=== PATIENT | female | born 1965 | race Caucasian/White ===

== ENCOUNTER 2024-04-18 05:01 | Inpatient (IN) | payer MEDICAID ==
[~2024-04-18] VITALS: Ht 160 cm; Wt 54.5 kg
[2024-04-18] MEDS: HYDROmorphone 1 mg/ml syringe IV ONE (06:13)
[2024-04-18] MEDS: ondansetron/PF 4mg/2ml inj IV ONE (06:15)
[2024-04-18 06:57] LABS: BASOPHILS % (AUTO) 0.3 % (0-1); EOSINOPHILS % (AUTO) 0.4 % (0-6); HEMATOCRIT 36.2 % (35.0-45.0); HEMOGLOBIN 12.7 g/dl (12.0-16.0); LYMPHOCYTES # (AUTO) 1.5 X10'3 (1.1-4.8); LYMPHOCYTES % (AUTO) 11.6 % (21-51); MEAN CORPUSCULAR HEMOGLOBIN 33.2 PG (27.0-31.0); MEAN CORPUSCULAR VOLUME 94.9 FL (78-98); MONOCYTES # (AUTO) 1.2 X10'3 (0-0.9); MONOCYTES % (AUTO) 9.2 % (2-12); NEUTROPHILS # (AUTO) 10.3 X10'3 (1.8-7.7); NEUTROPHILS % (AUTO) 78.5 % (42-75); PLATELET COUNT 540 X10'3 (140-440); RED BLOOD COUNT 3.81 X10'6 (4.20-5.60); RED CELL DISTRIBUTION WIDTH 12.4 % (11.5-14.5); WHITE BLOOD COUNT 13.1 X10'3 (4.5-11.0)
[2024-04-18 06:59] LABS: APTT 31 SECONDS (22-32); PROTHROMBIN TIME 10.4 SECONDS (9.0-12.0)
[2024-04-18 07:10] LABS: ALANINE AMINOTRANSFERASE 83 U/L (12-78); ALBUMIN 3.1 G/DL (3.4-5.0); ALBUMIN/GLOBULIN RATIO 0.8 (1.1-1.5); ALKALINE PHOSPHATASE 335 IU/L (46-116); ANION GAP 9 (8-16); ASPARTATE AMINO TRANSFERASE 18 U/L (10-37); BILIRUBIN,TOTAL 0.5 MG/DL (0.1-1.0); BLOOD UREA NITROGEN 36 MG/DL (7-18); BUN/CREATININE RATIO 22.4 (10.0-20.0); CALCIUM 8.6 MG/DL (8.5-10.1); CHLORIDE 86 MMOL/L (99-107); CREATININE 1.61 MG/DL (0.40-0.90); LIPASE 12 U/L (16-77); MAGNESIUM 1.9 MG/DL (1.5-2.4); POTASSIUM 4.3 MMOL/L (3.5-5.1); SODIUM 124 MMOL/L (135-145); TOTAL CARBON DIOXIDE 29.3 MMOL/L (24-32); TOTAL PROTEIN 7.1 G/DL (6.4-8.2); eCRCL 32 ML/MIN; eGFR 33 ML/MIN
[2024-04-18 07:12] LABS: GLUCOSE 609 MG/DL (70-104)
[2024-04-18] MEDS ORDERED: iohexol 300mg/ml 100ml inj. ONE (07:25)
[2024-04-18] MEDS ORDERED: NO HOME MEDS (08:35)
[2024-04-18 09:52] LABS: BILIRUBIN,URINE NEGATIVE (Neg); CLARITY,URINE CLEAR (Clear); COLOR,URINE STRAW (Yellow); GLUCOSE, URINE >=1000 mg/dl (Neg); KETONES,URINE NEGATIVE (Neg); LEUKOCYTE ESTERASE ,URINE NEGATIVE (Neg); NITRITES, URINE NEGATIVE (Neg); OCCULT BLOOD,URINE SMALL (Neg); PROTEIN,URINE NEGATIVE (Neg); UROBILINOGEN,URINE 0.2 E.U/dL (0.2-1.0)
[2024-04-18 09:54] LABS: UA COLLECTION TYPE STRAIGHT CATH
[2024-04-18 09:57] LABS: BACTERIA,URINE FEW /HPF (Neg); MUCUS STRANDS NONE SEEN /LPF (Neg); RBC,URINE 0-2 /HPF (0-2); SQUAMOUS EPITHELIAL CELL,UR NONE SEEN /LPF (FEW)
[2024-04-18 09:58] LABS: WBC CLUMPS,URINE FEW /HPF (NEGATIVE)
[2024-04-18 10:16] LABS: ABG BASE EXCESS 3.1 mmol/L (-2.0-3.0); ABG HCO3 27.1 mmol/L (21.0-28.0); ABG PCO2 (T) 39.1 mmHg (32.0-45.0); ABG PH (T) 7.458 (7.350-7.450); ABG PO2 (T) 88.1 mmHg (83.0-108.0); ALLEN'S TEST POSITIVE; FMetHb 0.3 % (0.0-1.5); FO2Hb 95.7 % (94.0-98.0); MODE ROOM AIR; PATIENT TEMPERATURE 36.8; TOTAL HEMOGLOBIN 13.3 G/dl (12.0-16.0)
[2024-04-18 10:22] LABS: URINE AMPHETAMINE SCREEN POSITIVE (Neg); URINE BARBITUATE SCREEN NEGATIVE (Neg); URINE BENZODIAZEPINES SCREEN NEGATIVE (Neg); URINE CANNABINOID SCREEN NEGATIVE (Neg); URINE COCAINE SCREEN NEGATIVE (Neg); URINE METHADONE SCREEN NEGATIVE (Neg); URINE OPIATE SCREEN NEGATIVE (Neg); URINE PHENCYCLIDINE SCREEN NEGATIVE (Neg)
[2024-04-18] MEDS: normal saline 1000ml 1,000 ML IV ONE (10:22)
[2024-04-18] MEDS ORDERED: magnesium sulf-water 2g/50mL 50 ML IV PRN (12:30)
[2024-04-18] MEDS ORDERED: HYDROcodone/acetaminophen 5mg/325mg tablet PO PRN (12:30)
[2024-04-18] MEDS ORDERED: dextrose 50%-water 50ml dispensing syringe IV PRN (12:30)
[2024-04-18] MEDS ORDERED: glucagon, human recombinant 1mg kit SUBCUT PRN (12:30)
[2024-04-18] MEDS ORDERED: magnesium sulf-water 4G/100mL 100 ML IV PRN (12:30)
[2024-04-18] MEDS ORDERED: potassium Cl 20 mEq SR tablet PO PRN ×2 (12:30)
[2024-04-18] MEDS ORDERED: DEXTROSE 15 GM of carb/4 tabs (each vial/BOTTLE has 4 tablets) PO PRN ×2 (12:30)
[2024-04-18] MEDS ORDERED: potassium Cl 40MEQ/1/2NS 520ml 520 ML IV PRN (12:30)
[2024-04-18] MEDS ORDERED: acetaminophen 325mg tablet PO PRN ×2 (12:30)
[2024-04-18] MEDS: CefTRIAXone/D5W-Rocephin 1gm 50 ML IV ONE (12:44)
[2024-04-18] MEDS: INSULIN LISPRO 100 UNIT/ML INSULN.PEN MULTI-DOSE SQ STA (12:55)
[2024-04-18 13:22] LABS: HEMOGLOBIN A1C > 12.0 % (4.5-6.2)
[2024-04-18] MEDS: normal saline 1000ml 1,000 ML IV SCH (14:12)
[2024-04-18] MEDS: INSULIN LISPRO 100 UNIT/ML INSULN.PEN MULTI-DOSE SQ SCH ×2 (14:14→17:00)
[2024-04-18 14:38] LABS: ANION GAP 7 (8-16); BLOOD UREA NITROGEN 31 MG/DL (7-18); BUN/CREATININE RATIO 22.8 (10.0-20.0); CALCIUM 9.1 MG/DL (8.5-10.1); CHLORIDE 95 MMOL/L (99-107); CREATININE 1.36 MG/DL (0.40-0.90); SODIUM 134 MMOL/L (135-145); eCRCL 38 ML/MIN; eGFR 40 ML/MIN
[2024-04-18] MEDS: ondansetron/PF 4mg/2ml inj IV PRN (14:44)
[2024-04-18] MEDS: HYDROmorphone 1 mg/ml syringe IV PRN (14:44)
[2024-04-18 14:47] LABS: GLUCOSE 448 MG/DL (70-104)
[2024-04-18] MEDS: VANCOMYCIN/WATER FOR INJ (PEG) 750MG/150 ML IVPB IV SCH (15:02)
[2024-04-18] MEDS: heparin, porcine 5000 units/ml vial SQ SCH (17:17)
[2024-04-18] MEDS: K and/or MAG REPLACEMENT MC SCH (19:49)
[2024-04-18 21:20] VITALS: RESP 17; O2SAT 98
[2024-04-18] MEDS: docusate sod 100mg capsule PO SCH (21:53)
[2024-04-18] MEDS: insulin glargine (Lantus) pen - multi-dose SQ SCH (22:49)
[2024-04-19] MEDS: lactulose 20gm/30ml cup PO SCH (02:29)
[2024-04-19 06:58] LABS: BASOPHILS % (AUTO) 0.1 % (0-1); EOSINOPHILS % (AUTO) 0.1 % (0-6); HEMATOCRIT 36.4 % (35.0-45.0); HEMOGLOBIN 12.6 g/dl (12.0-16.0); LYMPHOCYTES # (AUTO) 1.3 X10'3 (1.1-4.8); LYMPHOCYTES % (AUTO) 7.8 % (21-51); MEAN CORPUSCULAR HEMOGLOBIN 32.7 PG (27.0-31.0); MEAN CORPUSCULAR HGB CONC 34.6 g/dL (33.0-36.5); MEAN CORPUSCULAR VOLUME 94.7 FL (78-98); MEAN PLATELET VOLUME 8.5 FL (7.4-10.4); MONOCYTES # (AUTO) 1.6 X10'3 (0-0.9); MONOCYTES % (AUTO) 9.7 % (2-12); NEUTROPHILS # (AUTO) 13.5 X10'3 (1.8-7.7); NEUTROPHILS % (AUTO) 82.3 % (42-75); PLATELET COUNT 596 X10'3 (140-440); RED BLOOD COUNT 3.84 X10'6 (4.20-5.60); RED CELL DISTRIBUTION WIDTH 12.7 % (11.5-14.5); WHITE BLOOD COUNT 16.4 X10'3 (4.5-11.0)
[2024-04-19 07:36] VITALS: BP 118/60; PULSE 84; RESP 16; TEMP 97.8; O2SAT 99
[2024-04-19 07:50] LABS: ALANINE AMINOTRANSFERASE 65 U/L (12-78); ALBUMIN 2.7 G/DL (3.4-5.0); ALBUMIN/GLOBULIN RATIO 0.7 (1.1-1.5); ALKALINE PHOSPHATASE 272 IU/L (46-116); ANION GAP 10 (8-16); ASPARTATE AMINO TRANSFERASE 23 U/L (10-37); BILIRUBIN,TOTAL 0.2 MG/DL (0.1-1.0); BLOOD UREA NITROGEN 38 MG/DL (7-18); BUN/CREATININE RATIO 31.1 (10.0-20.0); CALCIUM 8.6 MG/DL (8.5-10.1); CHLORIDE 98 MMOL/L (99-107); CREATININE 1.22 MG/DL (0.40-0.90); GLUCOSE 185 MG/DL (70-104); MAGNESIUM 2.1 MG/DL (1.5-2.4); POTASSIUM 4.5 MMOL/L (3.5-5.1); SODIUM 133 MMOL/L (135-145); TOTAL PROTEIN 6.6 G/DL (6.4-8.2); eCRCL 43 ML/MIN; eGFR 46 ML/MIN
[2024-04-19] MEDS: CefTRIAXone/D5W-Rocephin 1gm 50 ML IV SCH (07:55)
[2024-04-19] MEDS: nicotine 21mg patch - 24 hr TD SCH (07:55)
[2024-04-19] MEDS: magnesium hydroxide 30ml (MOM) UD suspension PO PRN (07:56)
[2024-04-19 08:10] VITALS: RESP 16; O2SAT 99
[2024-04-19] MEDS: fluconazole-Diflucan 200mg/NS 100 ML IV SCH (09:20)
[2024-04-19 10:00] VITALS: BP 151/96; PULSE 95; RESP 15; TEMP 98.6; O2SAT 94
[2024-04-19] MEDS: HYDROcodone/acetaminophen 10/325mg tab PO PRN (16:22)
[2024-04-19 18:00] VITALS: BP 173/106; PULSE 97; RESP 15; TEMP 97.9; O2SAT 98
[2024-04-19 20:00] VITALS: RESP 15; O2SAT 98
[2024-04-19 22:00] VITALS: BP 164/105; PULSE 82; RESP 13; TEMP 98.1; O2SAT 97
[2024-04-19] MEDS: mag hydrox/Alum hydrox/simeth 30ml oral suspension PO PRN (23:13)
[2024-04-19] MEDS: mineral oil 133ml enema RC PRN (23:13)
[2024-04-20] VITALS (7 sets, daily range): BP systolic 142–178; BP diastolic 93–118; PULSE 84–107; RESP 16–20; TEMP 97.1–97.4; O2SAT 96–100
[2024-04-20] MEDS: hydrALAZINE 20mg/ml inj. IV PRN (03:22)
[2024-04-20 04:44] LABS: LYMPHOCYTES # (AUTO) 1.4 X10'3 (1.1-4.8)
[2024-04-20 04:47] LABS: BASOPHILS % (AUTO) 0.2 % (0-1); EOSINOPHILS % (AUTO) 0.3 % (0-6); HEMATOCRIT 41.1 % (35.0-45.0); LYMPHOCYTES % (AUTO) 9.5 % (21-51); MEAN CORPUSCULAR HEMOGLOBIN 32.5 PG (27.0-31.0); MEAN CORPUSCULAR VOLUME 95.6 FL (78-98); MEAN PLATELET VOLUME 8.8 FL (7.4-10.4); MONOCYTES # (AUTO) 1.6 X10'3 (0-0.9); MONOCYTES % (AUTO) 11.1 % (2-12); NEUTROPHILS # (AUTO) 11.6 X10'3 (1.8-7.7); NEUTROPHILS % (AUTO) 78.9 % (42-75); PLATELET COUNT 653 X10'3 (140-440); RED CELL DISTRIBUTION WIDTH 12.7 % (11.5-14.5); WHITE BLOOD COUNT 14.8 X10'3 (4.5-11.0)
[2024-04-20 05:07] LABS: ALANINE AMINOTRANSFERASE 52 U/L (12-78); ALBUMIN 2.7 G/DL (3.4-5.0); ALBUMIN/GLOBULIN RATIO 0.6 (1.1-1.5); ALKALINE PHOSPHATASE 272 IU/L (46-116); ANION GAP 12 (8-16); ASPARTATE AMINO TRANSFERASE 19 U/L (10-37); BILIRUBIN,TOTAL 0.3 MG/DL (0.1-1.0); BLOOD UREA NITROGEN 47 MG/DL (7-18); BUN/CREATININE RATIO 27.6 (10.0-20.0); CHLORIDE 98 MMOL/L (99-107); GLUCOSE 230 MG/DL (70-104); MAGNESIUM 2.4 MG/DL (1.5-2.4); POTASSIUM 4.3 MMOL/L (3.5-5.1); SODIUM 134 MMOL/L (135-145); TOTAL CARBON DIOXIDE 24.2 MMOL/L (24-32); TOTAL PROTEIN 7.1 G/DL (6.4-8.2); eCRCL 31 ML/MIN; eGFR 31 ML/MIN
[2024-04-20 05:11] LABS: GIANT PLATELET FEW; PLATELET ESTIMATE INCREASED
[2024-04-20 05:43] LABS: CALCIUM 8.8 MG/DL (8.5-10.1)
[2024-04-20] MEDS: HYDROmorphone inj. 0.5 MG/0.5 ML DISP.SYRIN IV PRN (13:18)
[2024-04-20] MEDS: magnesium citrate 296ml oral solution PO ONE (14:11)
[2024-04-20] MEDS: insulin glargine (Lantus) pen - multi-dose SQ SCH (20:27)
[2024-04-21] VITALS (7 sets, daily range): BP systolic 135–163; BP diastolic 91–112; PULSE 74–122; RESP 12–19; TEMP 97.2–98.1; O2SAT 92–97
[2024-04-21] MEDS: bisacodyl 10mg suppository rectal RC PRN ×2 (03:55→18:43)
[2024-04-21 05:57] LABS: HEMOGLOBIN 13.1 g/dl (12.0-16.0); LYMPHOCYTES # (AUTO) 1.4 X10'3 (1.1-4.8); MEAN CORPUSCULAR HEMOGLOBIN 33.1 PG (27.0-31.0); MONOCYTES # (AUTO) 1.7 X10'3 (0-0.9); NEUTROPHILS # (AUTO) 10.2 X10'3 (1.8-7.7); RED BLOOD COUNT 3.95 X10'6 (4.20-5.60); WHITE BLOOD COUNT 13.5 X10'3 (4.5-11.0)
[2024-04-21 05:59] LABS: BASOPHILS % (AUTO) 0.3 % (0-1); EOSINOPHILS % (AUTO) 0.2 % (0-6); HEMATOCRIT 37.8 % (35.0-45.0); LYMPHOCYTES % (AUTO) 10.4 % (21-51); MEAN CORPUSCULAR HGB CONC 34.5 g/dL (33.0-36.5); MEAN CORPUSCULAR VOLUME 95.8 FL (78-98); MEAN PLATELET VOLUME 8.4 FL (7.4-10.4); MONOCYTES % (AUTO) 12.9 % (2-12); NEUTROPHILS % (AUTO) 76.2 % (42-75); PLATELET COUNT 654 X10'3 (140-440); RED CELL DISTRIBUTION WIDTH 12.6 % (11.5-14.5)
[2024-04-21 06:15] LABS: ALANINE AMINOTRANSFERASE 51 U/L (12-78); ALBUMIN 2.5 G/DL (3.4-5.0); ALBUMIN/GLOBULIN RATIO 0.6 (1.1-1.5); ALKALINE PHOSPHATASE 251 IU/L (46-116); ANION GAP 17 (8-16); ASPARTATE AMINO TRANSFERASE 22 U/L (10-37); BILIRUBIN,TOTAL 0.3 MG/DL (0.1-1.0); BLOOD UREA NITROGEN 56 MG/DL (7-18); BUN/CREATININE RATIO 26.7 (10.0-20.0); CALCIUM 9.1 MG/DL (8.5-10.1); CHLORIDE 92 MMOL/L (99-107); GLUCOSE 391 MG/DL (70-104); MAGNESIUM 3.1 MG/DL (1.5-2.4); POTASSIUM 4.9 MMOL/L (3.5-5.1); SODIUM 131 MMOL/L (135-145); TOTAL CARBON DIOXIDE 22.4 MMOL/L (24-32); TOTAL PROTEIN 6.9 G/DL (6.4-8.2); eCRCL 25 ML/MIN; eGFR 24 ML/MIN
[2024-04-21] MEDS: INSULIN LISPRO 100 UNIT/ML INSULN.PEN MULTI-DOSE SQ SCH ×2 (08:16→09:00)
[2024-04-21] MEDS: sennosides/docusate sodium tablet PO SCH (13:18)
[2024-04-21] MEDS: VANCOMYCIN LEVEL IV ONE (13:30)
[2024-04-21] MEDS: insulin glargine (Lantus) pen - multi-dose SQ SCH (21:47)
[2024-04-22 06:31] VITALS: BP 139/85; PULSE 99; RESP 15; TEMP 97.9; O2SAT 93
[2024-04-22 08:00] VITALS: RESP 15; O2SAT 93
[2024-04-22 08:48] LABS: ALANINE AMINOTRANSFERASE 47 U/L (12-78); ALBUMIN/GLOBULIN RATIO 0.6 (1.1-1.5); ALKALINE PHOSPHATASE 195 IU/L (46-116); ANION GAP 7 (8-16); ASPARTATE AMINO TRANSFERASE 43 U/L (10-37); BILIRUBIN,TOTAL 0.2 MG/DL (0.1-1.0); BLOOD UREA NITROGEN 47 MG/DL (7-18); BUN/CREATININE RATIO 30.9 (10.0-20.0); CALCIUM 7.7 MG/DL (8.5-10.1); CHLORIDE 102 MMOL/L (99-107); CREATININE 1.52 MG/DL (0.40-0.90); GLUCOSE 323 MG/DL (70-104); MAGNESIUM 2.6 MG/DL (1.5-2.4); POTASSIUM 4.6 MMOL/L (3.5-5.1); SODIUM 133 MMOL/L (135-145); TOTAL CARBON DIOXIDE 23.7 MMOL/L (24-32); TOTAL PROTEIN 5.6 G/DL (6.4-8.2); eCRCL 34 ML/MIN; eGFR 35 ML/MIN
[2024-04-22 08:50] LABS: EOSINOPHILS # (AUTO) 0.1 X10'3 (0-0.9); HEMOGLOBIN 11.6 g/dl (12.0-16.0); PLATELET COUNT 606 X10'3 (140-440)
[2024-04-22 08:52] LABS: BASOPHILS % (AUTO) 0.3 % (0-1); EOSINOPHILS % (AUTO) 1.1 % (0-6); HEMATOCRIT 33.9 % (35.0-45.0); LYMPHOCYTES # (AUTO) 1.6 X10'3 (1.1-4.8); LYMPHOCYTES % (AUTO) 13.4 % (21-51); MEAN CORPUSCULAR HGB CONC 34.3 g/dL (33.0-36.5); MEAN CORPUSCULAR VOLUME 96.3 FL (78-98); MEAN PLATELET VOLUME 8.4 FL (7.4-10.4); MONOCYTES # (AUTO) 1.4 X10'3 (0-0.9); MONOCYTES % (AUTO) 12.3 % (2-12); NEUTROPHILS # (AUTO) 8.5 X10'3 (1.8-7.7); NEUTROPHILS % (AUTO) 72.9 % (42-75); RED BLOOD COUNT 3.52 X10'6 (4.20-5.60); RED CELL DISTRIBUTION WIDTH 12.6 % (11.5-14.5); WHITE BLOOD COUNT 11.7 X10'3 (4.5-11.0)
[2024-04-22 10:00] VITALS: BP 130/86; PULSE 97; RESP 16; TEMP 96.8; O2SAT 93
[2024-04-22] MEDS: INSULIN LISPRO 100 UNIT/ML INSULN.PEN MULTI-DOSE SQ ONE ×2 (13:36→17:44)
[2024-04-22] MEDS: vancomycin/NS 1 GM ADD-VANTAGE 250 ML IV SCH (14:24)
[2024-04-22] MEDS: metoprolol tartrate 50mg tablet PO ONE (17:48)
[2024-04-22 18:00] VITALS: BP 143/95; PULSE 107; RESP 18; TEMP 96.6; O2SAT 93
[2024-04-22 20:46] VITALS: RESP 15; O2SAT 93
[2024-04-22] MEDS: insulin glargine (Lantus) pen - multi-dose SQ SCH (21:14)
[2024-04-22 22:00] VITALS: BP 146/94; PULSE 82; RESP 10; TEMP 97.1; O2SAT 98
[2024-04-23 06:01] LABS: BASOPHILS % (AUTO) 0.2 % (0-1); EOSINOPHILS # (AUTO) 0.1 X10'3 (0-0.9); EOSINOPHILS % (AUTO) 1.4 % (0-6); HEMATOCRIT 30.5 % (35.0-45.0); HEMOGLOBIN 10.8 g/dl (12.0-16.0); LYMPHOCYTES # (AUTO) 2.9 X10'3 (1.1-4.8); LYMPHOCYTES % (AUTO) 31.2 % (21-51); MEAN CORPUSCULAR HEMOGLOBIN 33.5 PG (27.0-31.0); MEAN CORPUSCULAR HGB CONC 35.3 g/dL (33.0-36.5); MEAN CORPUSCULAR VOLUME 94.7 FL (78-98); MEAN PLATELET VOLUME 7.9 FL (7.4-10.4); MONOCYTES # (AUTO) 1.3 X10'3 (0-0.9); MONOCYTES % (AUTO) 14.4 % (2-12); NEUTROPHILS # (AUTO) 4.9 X10'3 (1.8-7.7); NEUTROPHILS % (AUTO) 52.8 % (42-75); PLATELET COUNT 592 X10'3 (140-440); RED BLOOD COUNT 3.22 X10'6 (4.20-5.60); RED CELL DISTRIBUTION WIDTH 12.5 % (11.5-14.5); WHITE BLOOD COUNT 9.2 X10'3 (4.5-11.0)
[2024-04-23 06:27] LABS: ALANINE AMINOTRANSFERASE 58 U/L (12-78); ALBUMIN/GLOBULIN RATIO 0.6 (1.1-1.5); ALKALINE PHOSPHATASE 209 IU/L (46-116); ANION GAP 9 (8-16); ASPARTATE AMINO TRANSFERASE 42 U/L (10-37); BILIRUBIN,TOTAL 0.2 MG/DL (0.1-1.0); BLOOD UREA NITROGEN 31 MG/DL (7-18); BUN/CREATININE RATIO 34.4 (10.0-20.0); CALCIUM 8.3 MG/DL (8.5-10.1); CHLORIDE 101 MMOL/L (99-107); GLUCOSE 58 MG/DL (70-104); MAGNESIUM 2.1 MG/DL (1.5-2.4); POTASSIUM 3.6 MMOL/L (3.5-5.1); SODIUM 136 MMOL/L (135-145); TOTAL PROTEIN 5.6 G/DL (6.4-8.2); eCRCL 58 ML/MIN; eGFR 65 ML/MIN
[2024-04-23 06:40] VITALS: BP 120/80; PULSE 97; RESP 14; TEMP 98.1; O2SAT 94
[2024-04-23] MEDS ORDERED: METO50TA16 PO (07:09)
[2024-04-23] MEDS ORDERED: LINE600T14 PO (07:09)
[2024-04-23] MEDS ORDERED: ASPI81TA52 PO (07:09)
[2024-04-23] MEDS: dextrose 50%-water 50ml dispensing syringe IV PRN (07:09)
[2024-04-23] MEDS ORDERED: CEPH-585 PO (07:09)
[2024-04-23 08:00] VITALS: RESP 15; O2SAT 93
[2024-04-23] MEDS: heparin, porcine 5000 units/ml vial SQ SCH (08:00)
[2024-04-23] MEDS: metoprolol tartrate 50mg tablet PO SCH (09:10)
[2024-04-23 10:00] VITALS: BP 125/67; PULSE 86; RESP 15; TEMP 97.3; O2SAT 89
[2024-04-23] MEDS ORDERED: SENN-294 PO (10:37)
[2024-04-23 18:00] VITALS: BP 145/96; PULSE 105; RESP 14; TEMP 98.2; O2SAT 95
[2024-04-23 20:00] VITALS: RESP 16; O2SAT 93
[2024-04-23 22:00] VITALS: BP 123/71; PULSE 89; RESP 16; TEMP 96.9; O2SAT 93
[2024-04-24 07:45] VITALS: BP_SYST 150; PULSE 91
[2024-04-24 08:00] VITALS: RESP 17; O2SAT 97
[2024-04-24] MEDS: mineral oil 133ml enema RC STA (09:03)
[2024-04-24 10:01] VITALS: RESP 16
[2024-04-25] MEDS ORDERED: VANCOMYCIN LEVEL IV ONE (14:30)
== END 2024-04-24 10:30 | disposition home health service (06) | DRG 383 ==
LOC: ER 05:02 → ED HOLD 12:38 → ORTHO 4S 21:13
PROVIDERS: ADMIT Family Medicine; ATTEND Family Medicine
PROC: BW211ZZ Computerized Tomography (CT Scan) of Abdomen and Pelvis using Low Osmolar Contrast (ICD-10-PCS; principal; 2024-04-18)
DX: L03.116 Cellulitis of left lower limb (principal); N17.9 Acute kidney failure, unspecified; E87.1 Hypo-osmolality and hyponatremia; N13.6 Pyonephrosis; B35.3 Tinea pedis; L03.115 Cellulitis of right lower limb; E86.0 Dehydration; K59.00 Constipation, unspecified; B37.31 Acute candidiasis of vulva and vagina; F10.10 Alcohol abuse, uncomplicated; R23.1 Pallor; E11.65 Type 2 diabetes mellitus with hyperglycemia; K86.1 Other chronic pancreatitis; Z79.899 Other long term (current) drug therapy
CPT/HCPCS: 36415; 36600; 74018; 74177; 76770; 80048; 80053; 80202; 80305; 81001; 82803; 82948; 83036; 83605; 83690; 83735; 85008; 85018; 85025; 85610; 85730; 87040; 87077; 87081; 87088; 87186; 93925; 94760; 96361; 96374; 96375; 97161; 97530; 99291; A4314; A4338; A4340; A4353; A4358; A6213; A6258; A6449; G0378; J0360; J0696; J1171; J1450; J1644; J1815; J2405; J3370; J3372; J3490; J7030; Q9967